=== PATIENT | female | born 1945 | race Caucasian/White ===

== ENCOUNTER 2019-04-01 12:48 | Emergency (ER) | payer OTHER ==
[~2019-04-01] VITALS: Ht 157.5 cm; Wt 53.5 kg
[~2019-04-01 12:48] MED LIST: ATOR80TA PO; CLON2TAB11 PO; CLOP75TA15 PO; FOLI1TAB16 PO; LEVO750T21 PO; LOSA1TAB15 PO; METF-440 PO; PANT40VI PO
[2019-04-01 12:50] VITALS: BP 164/77
--- NOTE | 2019-04-01 12:50 | NUR ---
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
[2019-04-01] MEDS ORDERED: KETOROLAC TROMETHAMINE INJ 30 MG/ML VIAL IM ONE (14:00)
[2019-04-01] MEDS ORDERED: CARISOPRODOL 350 MG TABLET ONE (14:00)
[2019-04-01] MEDS ORDERED: ACETAMINOPHEN ES 500 MG TABLET PO ONE (14:00)
[2019-04-01] MEDS ORDERED: CARISOPRODOL 350 MG TABLET PO ONE (14:00)
[2019-04-01] MEDS ORDERED: ACETAMINOPHEN ES 500 MG TABLET ONE (14:00)
[2019-04-01] MEDS ORDERED: KETOROLAC TROMETHAMINE INJ 30 MG/ML VIAL ONE (14:00)
== END 2019-04-01 14:49 | disposition home or self-care (01) ==
LOC: ER 12:53
DX: M54.5 Low back pain (principal); I10 Essential (primary) hypertension; E78.00 Pure hypercholesterolemia, unspecified; I25.10 Atherosclerotic heart disease of native coronary artery without angina pectoris; E11.9 Type 2 diabetes mellitus without complications; Z86.73 Personal history of transient ischemic attack (TIA), and cerebral infarction without residual deficits; Z98.890 Other specified postprocedural states; Z79.899 Other long term (current) drug therapy; Z79.84 Long term (current) use of oral hypoglycemic drugs
CPT/HCPCS: 96372; 99283; J1885

== ENCOUNTER 2020-12-03 03:52 | Emergency (ER) | payer OTHER ==
[~2020-12-03] VITALS: Ht 157.5 cm; Wt 57.2 kg
--- NOTE | 2020-12-03 03:55 | NUR ---
C/O UPPER BACK PAIN SINCE 2199. PT DENIES TRAUMA, PT AAOX4, DENIES ANY SOB/CP, PLACED ON MONITOR, VSS, PENDING ER PROVIDER EVAL
[2020-12-03] MEDS ORDERED: ASPIRIN 81 MG TAB.CHEW PO ONE (04:30)
[2020-12-03] MEDS ORDERED: ONDANSETRON HCL/PF 4 MG/2 ML VIAL IVP ONE (04:30)
[2020-12-03] MEDS ORDERED: LORAZEPAM INJ 2 MG/ML VIAL IV ONE (04:30)
[2020-12-03] MEDS ORDERED: HYDROMORPHONE INJ 2 MG/ML DISP.SYRIN IV ONE (04:30)
[2020-12-03] MEDS ORDERED: ONDANSETRON HCL/PF 4 MG/2 ML VIAL ONE (04:46)
[2020-12-03] MEDS ORDERED: ASPIRIN 81 MG TAB.CHEW ONE (04:47)
[2020-12-03] MEDS ORDERED: HYDROMORPHONE 1 MG/1 ML DISP.SYRIN ONE (04:47)
[2020-12-03] MEDS ORDERED: LORAZEPAM INJ 2 MG/ML VIAL ONE (04:48)
[2020-12-03 04:53] LABS: BASOPHILS # (AUTO) 0.1 /CMM (0.0-0.2); BASOPHILS % (AUTO) 0.9 % (0.0-2.0); EOSINOPHILS % (AUTO) 4.6 % (0.0-6.0); HEMATOCRIT 36 % (33-45); HEMOGLOBIN 12.1 g/dL (11.5-14.8); LYMPHOCYTES # (AUTO) 1.2 /CMM (0.8-4.8); LYMPHOCYTES % (AUTO) 21.2 % (20.0-44.0); MEAN CORPUSCULAR HGB CONC 33 g/dl (31.0-36.0); MEAN CORPUSCULAR VOLUME 85 fL (82-100); MONOCYTES # (AUTO) 0.7 /CMM (0.1-1.30); MONOCYTES % (AUTO) 11.5 % (2.0-12.0); NEUTROPHILS # (AUTO) 3.5 /CMM (1.8-8.9); NEUTROPHILS % (AUTO) 61.8 % (43.0-81.0); PLATELET COUNT (AUTO) 189 /CMM (150-450); RED BLOOD CELL COUNT(AUTO) 4.28 MIL/uL (4.0-5.2); WHITE BLOOD COUNT (AUTO) 5.7 K/uL (4.3-11.0)
[2020-12-03 05:05] LABS: CALCIUM, SERUM 8.8 mg/dL (8.5-10.1); CARBON DIOXIDE 29 mmol/L (21-32); CHLORIDE 102 mmol/L (98-107); CREATININE 0.9 mg/dL (0.6-1.3); GLUCOSE 128 mg/dL (74-106); POTASSIUM 3.2 mmol/L (3.5-5.1); SODIUM SERUM 139 mmol/L (136-145); UREA NITROGEN, BLOOD 24 mg/dL (7-18)
[2020-12-03 05:22] LABS: ALANINE AMINOTRANSFERASE 19 U/L (12-78); ALBUMIN 3.7 g/dL (3.4-5.0); ALKALINE PHOSPHATASE 114 U/L (46-116); ASPARTATE AMINOTRANSFERASE 21 U/L (15-37); BILIRUBIN,DIRECT 0.2 mg/dL (0.0-0.2); BILIRUBIN,TOTAL 0.7 mg/dL (0.2-1.0); NT-PRO BNP 56 pg/mL (0-125); TOTAL PROTEIN, SERUM 7.1 g/dL (6.4-8.2)
[2020-12-03] MEDS ORDERED: POTASSIUM CHLORIDE 20 MEQ TAB.PRT.SR PO ONE ×2 (05:30→06:32)
--- NOTE | 2020-12-03 07:21 | NUR ---
RECEIVED REPORT FROM FAUSTINO GONZALEZ FOR RIKY. PT ASLEEP ON BED EASILY AROUSABLE, NOT IN RESPIRATORY DISTRESS, V/S STABLE, KEPT RESTED AND COMFORTABLE. WILL CONTINUE TO MONITOR.
[2020-12-03] MEDS ORDERED: TRAM-351 PO (09:19)
[2020-12-03] MEDS ORDERED: LORA-259 PO (09:19)
[2020-12-03 09:29] VITALS: BP 123/76
--- NOTE | 2020-12-03 09:29 | NUR ---
IV removed. Catheter intact and site benign. Pressure and 4x4 applied to site. No bleeding noted. Patient discharged to home in stable condition. Written and verbal after care instructions given. Patient verbalizes understanding of instruction.
== END 2020-12-03 09:29 | disposition home or self-care (01) ==
LOC: ER 03:56
DX: R07.89 Other chest pain (principal); M54.6 Pain in thoracic spine; E78.00 Pure hypercholesterolemia, unspecified; I10 Essential (primary) hypertension; I25.10 Atherosclerotic heart disease of native coronary artery without angina pectoris; E11.9 Type 2 diabetes mellitus without complications; Z86.73 Personal history of transient ischemic attack (TIA), and cerebral infarction without residual deficits; Z98.890 Other specified postprocedural states; Z79.899 Other long term (current) drug therapy; Z79.84 Long term (current) use of oral hypoglycemic drugs
CPT/HCPCS: 36415; 71045; 80048; 80076; 83880; 84484 ×2; 85025; 85378; 93005; 96374; 96375; 99285; J1170; J2060; J2405